=== PATIENT | female | born 1985 | race Caucasian/White ===

== ENCOUNTER 2023-03-19 12:31 | Emergency (ER) | payer OTHER ==
[2023-03-19] MEDS ORDERED: Ondansetron 4 MG Tab.DIS PO ONE (13:16)
== END 2023-03-19 13:32 | disposition home or self-care (01) ==
LOC: JD.ED 12:31
DX: S06.0X0A Concussion without loss of consciousness, initial encounter (principal); Z86.16 Personal history of COVID-19; W22.8XXA Striking against or struck by other objects, initial encounter
CPT/HCPCS: 99283; A9270

== ENCOUNTER 2023-09-20 12:42 | Emergency (ER) | payer OTHER ==
[2023-09-20] MEDS ORDERED: Sodium Chloride 0.9% 10 ML Syringe FLUSH PRN ×2 (13:09→14:05)
[2023-09-20] MEDS: Famotidine 20 MG/2 ML SDV IVPUSH ONE (13:42)
[2023-09-20] MEDS: Ondansetron 4 MG/2 ML SDV IVPUSH ONE (13:42)
[2023-09-20] MEDS: Sucralfate Suspension 1 GM/10 ML Cup PO ONE (13:42)
[2023-09-20] MEDS: Iopamidol 612 MG/ML 100 ML Bottle IVPUSH ONE (14:06)
[2023-09-20 14:22] LABS: BASOPHILS PERCENT AUTO 0.3 % (0.0-1.0); EOSINOPHILS ABSOLUTE AUTO 0.1 K/mm3 (0.0-0.4); EOSINOPHILS PERCENT AUTO 0.9 % (0.0-6.0); HEMATOCRIT 40.1 % (37.0-47.0); HEMOGLOBIN 13.8 gm/dl (12.0-16.0); IMMATURE GRAN ABSOLUTE AUTO 0.01 K/mm3 (0.00-0.05); IMMATURE GRAN PERCENT AUTO 0.1 % (0.0-0.4); LYMPHOCYTES ABSOLUTE AUTO 2.3 K/mm3 (1.0-4.8); MEAN CORPUSCULAR HEMOGLOBIN 30.5 pg (28.0-32.0); MEAN CORPUSCULAR HGB CONC 34.4 g/dl (32.0-36.0); MEAN CORPUSCULAR VOLUME 88.5 fl (83.0-99.0); MEAN PLATELET VOLUME 9.9 fl (9.4-12.3); MONOCYTES ABSOLUTE AUTO 0.3 K/mm3 (0.0-0.8); MONOCYTES PERCENT AUTO 3.9 % (0.0-8.0); NEUTROPHILS PERCENT AUTO 64.8 % (41.0-71.0); PLATELET COUNT,PLT 249 K/mm3 (150-400); RED BLOOD CELL COUNT 4.53 M/mm3 (4.10-5.30); WHITE BLOOD CELL COUNT,WBC 7.67 K/mm3 (3.9-11.3)
[2023-09-20 14:40] LABS: ALBUMIN 4.2 g/dl (3.4-5.0); ANION GAP 15.1 (5-15); BILIRUBIN TOTAL 0.3 mg/dL (0.2-1.0); BUN/CREATININE RATIO 13.3 (14-18); C-REACTIVE PROTEIN 0.3 mg/dL (<1.0); CREATININE 1.2 mg/dL (0.55-1.02); EST CRCL DRUG DOSING (CG) 55.97 mL/min; PROTEIN TOTAL,TP 8.3 g/dl (6.4-8.2)
[2023-09-20 14:48] LABS: POTASSIUM,K 4.1 mEq/L (3.5-5.1)
== END 2023-09-20 15:44 | disposition home or self-care (01) ==
LOC: JD.ED 12:42
DX: K21.9 Gastro-esophageal reflux disease without esophagitis (principal); R10.11 Right upper quadrant pain; Z86.16 Personal history of COVID-19; Z79.899 Other long term (current) drug therapy
CPT/HCPCS: 36415; 74177; 80053; 83690; 85025; 86140; 96374; 96375; 99284; A9270; J2405; J3490; Q9967